=== PATIENT | male | born 1985 | race Two or more races ===

== ENCOUNTER 2024-03-13 19:29 | Emergency (ER) | payer SELFPAY ==
[~2024-03-13] VITALS: Ht 172.7 cm; Wt 75.0 kg
[2024-03-13 20:06] VITALS: BP 137/98; PULSE 76; RESP 18; TEMP 97.9
[2024-03-13] MEDS ORDERED: AMOX1TAB16 PO (22:31)
[2024-03-13] MEDS: AMOX TR/POT CLAV 875 MG/125 MG TABLET PO ONE (22:36)
[2024-03-13] MEDS: PERTUSS(ACELL),DIPH,TET/PF 0.5 ML SYRINGE [ADULT] IM. ONE (22:38)
== END 2024-03-13 22:54 | disposition home or self-care (01) ==
LOC: EDBD 19:29 → EMS 19:29
DX: S51.851A Open bite of right forearm, initial encounter (principal); W54.0XXA Bitten by dog, initial encounter; Y93.89 Activity, other specified; Y92.89 Other specified places as the place of occurrence of the external cause; Y99.8 Other external cause status
CPT/HCPCS: 12001; 90471; 90715; 99283